=== PATIENT | male | born 1975 | race Caucasian/White ===

== ENCOUNTER 2016-09-25 21:00 | Emergency (ER) | payer OTHER ==
[~2016-09-25 21:00] MED LIST: ALBU0.63 NEB; AMOX500C PO; FLUT1DIS3 IH; FLUT9.9S NS; PROAIR HFA8.5 GM IH
[2016-09-25 21:30] VITALS: BP 128/81
[2016-09-25] MEDS ORDERED: IPRATRPIUM/ALBUTEROL 0.5/2.5MG 3 ML NEBU. NEB ONE (22:15)
[2016-09-25] MEDS ORDERED: BENZ200C39 PO (22:58)
[2016-09-25] MEDS ORDERED: PRED20TA PO (22:58)
[2016-09-25] MEDS ORDERED: AMOX500T PO (22:58)
--- NOTE | 2016-09-25 22:58 | PHYS DOC ---
Past Medical History Past Medical History: Asthma Past Surgical History: Other Additional Past Surgical Histo: nose, right ear Additional Information: Nonsmoker Alcohol Use: None Drug Use: None Adult General Chief Complaint Chief Complaint: Congestion HPI HPI Patient is a 41 year old male with history of asthma who presents with productive cough and left ear pain for 4 days. He reports shortness of breath and nasal congestion as well. He denies fever, sore throat, vomiting, or diarrhea. He wears a hearing aid in the left ear. He states that there has been mild drainage from the ear, enough to make the hearing aid slightly damp. He takes Advair, pro-air, albuterol nebulizer, allergy medication, and Flonase at home. He has received a flu shot this season. He denies any known sick contacts. His PCP is Dr. Starkey. Review of Systems Review of Systems Constitutional: Denies fever or chills. [] Eyes: Denies change in visual acuity, redness, or eye pain. [] HENT: Denies sore throat. Reports left ear pain and drainage and nasal congestion. Respiratory: Reports productive cough and shortness of breath. Cardiovascular: Denies chest pain, palpitations or edema. [] GI: Denies abdominal pain, nausea, vomiting, bloody stools or diarrhea. [] : Denies dysuria, hematuria or urinary frequency. [] Musculoskeletal: Denies back pain or joint pain. [] Integument: Denies rash or skin lesions. [] Neurologic: Denies headache, focal weakness or sensory changes. [] Endocrine: Denies polyuria or polydipsia. [] Psych: Denies anxiety or depression. [] All systems reviewed and negative unless otherwise stated in the HPI. Current Medications Current Medications Current Medications Medications (Trade) Dose Ordered Sig/Beverley Start Time Stop Time Status Last Admin Dose Admin Albuterol/ Ipratropium (Duoneb) 3 ml 1X ONCE 09/25/16 22:15 09/25/16 22:16 DC 09/25/16 22:30 3 ML Allergies Allergies Allergies Coded Allergies Type Severity Reaction Last Updated Verified No Known Drug Allergies 08/15/15 No Physical Exam Physical Exam Constitutional: Well developed, well nourished, no acute distress, non-toxic appearance. [] HENT: Normocephalic, atraumatic, bilateral external ears normal, oropharynx moist, no oral exudates, nose normal. Right TM without erythema or bulging. Left TM is erythematous and perforated with mild purulent drainage in the ear canal without edema. There is no posterior pharyngeal erythema or tonsillar edema. Bilateral nasal turbinates are swollen and erythematous with purulent drainage. Eyes: PERRLA, EOMI, conjunctiva normal, no discharge. [] Neck: Normal range of motion, no tenderness, supple, no stridor. [] Cardiovascular: Heart rate regular rhythm, no murmur [] Lungs & Thorax: There are diffuse expiratory wheezes with mild inspiratory wheezes in the lung bases bilaterally. No respiratory distress. Skin: Warm, dry, no erythema, no rash. [] Neurologic: Alert and oriented X 3, normal motor function, normal sensory function, no focal deficits noted. [] Psychologic: Affect normal, judgement normal, mood normal. [] Current Patient Data Vital Signs Vital Signs Date Time Temp Pulse Resp B/P Pulse Ox O2 Delivery O2 Flow Rate FiO2 09/25/16 22:29 94 Room Air 09/25/16 21:30 97.5 92 22 97.5 EKG EKG [] Radiology/Procedures Radiology/Procedures PA and lateral chest x-ray reviewed and interpreted by myself with Dr. Benavides. There are no focal infiltrates or acute cardiopulmonary process. Course & Med Decision Making Course & Med Decision Making Pertinent Labs and Imaging studies reviewed. (See chart for details) The patient received a DuoNeb treatment in the emergency department. He reports improved breathing. He has mild scattered inspiratory wheezes diffusely. Dragon Disclaimer Dragon Disclaimer This electronic medical record was generated, in whole or in part, using a voice recognition dictation system. Departure Departure Impression: Primary Impression: Otitis media Additional Impression: Bronchitis Disposition: 01 HOME, SELF-CARE Condition: IMPROVED Referrals: HEMALATHA STARKEY MD (PCP) Patient Instructions: Acute Bronchitis, [id number], Otitis Media, Adult, Easy -to-Read Additional Instructions: Your chest x-ray does not show any pneumonia. The left ear has an infection that has caused the eardrum to rupture. Please complete all the prescribed antibiotics and steroids, even if you are feeling better. Please continue to use your home medications as directed. Return to the emergency department if you have any new or concerning symptoms. Scripts Amoxicillin 500 Mg Tablet2 Tab PO TID 10 Days Prov:MAX DAY 09/25/16 Benzonatate 200 Mg Capsule1 Cap PO TID #30 CAP Prov:MAX DAY 09/25/16 Prednisone 20 Mg Aewikr11 Mg PO DAILY 5 Days Prov:MAX DAY 09/25/16 Problem Qualifiers Primary Impression: Otitis media Otitis media type: suppurative Laterality: left Chronicity: acute Recurrence: not specified as recurrent Spontaneous tympanic membrane rupture: with spontaneous rupture Qualified Code: H66.012 - Acute suppurative otitis media with spontaneous rupture of ear drum, left ear MAX DAY Sep 25, 2016 22:58
--- NOTE | 2016-09-26 07:37 | RAD ---
Indication cough. PA and lateral views of the chest were obtained and are compared to an examination 04/03/2016. The heart and pulmonary vessels appear within normal limits. A focal infiltrate is not seen. Significant pleural fluid is not present and there is no pneumothorax. IMPRESSION: No acute or focal process seen in the chest
== END 2016-09-25 23:05 | disposition home or self-care (01) ==
LOC: ER 21:00
DX: J40 Bronchitis, not specified as acute or chronic (principal); H66.012 Acute suppurative otitis media with spontaneous rupture of ear drum, left ear; J45.909 Unspecified asthma, uncomplicated
CPT/HCPCS: 71020; 94250; 94640; 99284; J7620

== ENCOUNTER 2017-01-03 18:12 | Emergency (ER) | payer MEDICARE, OTHER ==
[~2017-01-03 18:12] MED LIST changes: +AMOX500T PO; +BENZ200C47 PO; +PRED20TA PO
[2017-01-03 18:34] VITALS: BP 142/75
[2017-01-03] MEDS ORDERED: OFLO5DRO7 EACH EAR (19:07)
--- NOTE | 2017-01-03 19:08 | PHYS DOC ---
Past Medical History Past Medical History: Asthma Past Surgical History: Other Additional Past Surgical Histo: nose, right ear Alcohol Use: None Drug Use: None Adult General Chief Complaint Chief Complaint: EARACHE/EAR PAIN HPI HPI Patient is a 41 year old male with history of asthma WIYOT on the left currently using hearing aids on the left who presents today with left ear pain and drainage that began today. Patient denies any fever coughing or congestion. Patient denies any worsening on his hearing condition. Patient denies swimming. Review of Systems Review of Systems Constitutional: Denies fever or chills [] Eyes: Denies change in visual acuity, redness, or eye pain [] HENT: left ear pain and drainage Respiratory: Denies cough or shortness of breath [] Cardiovascular: No additional information not addressed in HPI [] Musculoskeletal: Denies back pain or joint pain [] Neurologic: Denies headache, focal weakness or sensory changes [] Endocrine: Denies polyuria or polydipsia [] Allergies Allergies Allergies Coded Allergies Type Severity Reaction Last Updated Verified phenobarbital Allergy Severe SOB 01/03/17 Yes Physical Exam Physical Exam Constitutional: Well developed, well nourished, no acute distress, non-toxic appearance. [] HENT: Normocephalic, atraumatic, bilateral external ears normal, oropharynx moist, no oral exudates, nose normal. [] Left ear canal is narrowed. There is mild amount of yellow debris in the left ear canal. Tragus is very painful on exam. Eyes: PERRLA, EOMI, conjunctiva normal, no discharge. [] Cardiovascular:Heart rate regular rhythm, no murmur [] Lungs & Thorax: Bilateral breath sounds clear to auscultation [] Skin: Warm, dry, no erythema, no rash. [] Back: No tenderness, no CVA tenderness. [] Extremities: No tenderness, no cyanosis, no clubbing, ROM intact, no edema. [] Neurologic: Alert and oriented X 3, normal motor function, normal sensory function, no focal deficits noted. [] Psychologic: Affect normal, judgement normal, mood normal. [] Current Patient Data Vital Signs Vital Signs Date Time Temp Pulse Resp B/P (MAP) Pulse Ox O2 Delivery O2 Flow Rate FiO2 01/03/17 18:34 97.6 63 20 100 Room Air 97.6 EKG EKG [] Radiology/Procedures Radiology/Procedures [] Course & Med Decision Making Course & Med Decision Making Pertinent Labs and Imaging studies reviewed. (See chart for details) Patient has left otitis externa. Discharged with oflaxacin, follow-up with PCP in 1-2 weeks. Dragon Disclaimer Dragon Disclaimer This electronic medical record was generated, in whole or in part, using a voice recognition dictation system. Departure Departure Impression: Primary Impression: Left otitis externa Disposition: HOME, SELF-CARE Condition: STABLE Referrals: HEMALATHA BATISTA MD (PCP) Follow-up with your doctor in 1-2 weeks. Patient Instructions: Otitis Externa, [id number] Additional Instructions: You were seen for left ear infection. Use the eardrops as prescribed. Follow-up with your doctor in 1-2 weeks. Scripts Ofloxacin (OFLOXACIN) 5 Ml Drops 5 DROP EACH EAR BID, #10 ML Prov: DEMETRIA BAILEY [employer] 01/03/17 Problem Qualifiers Primary Impression: Left otitis externa Otitis externa type: other infective Chronicity: acute Qualified Codes: H60.392 - Other infective otitis externa, left ear [employer]A BAI[employer] Jan 03, 2017 19:07
== END 2017-01-03 19:16 | disposition home or self-care (01) ==
LOC: ER 18:12
DX: H60.392 Other infective otitis externa, left ear (principal); J45.909 Unspecified asthma, uncomplicated; Z88.8 Allergy status to other drugs, medicaments and biological substances
CPT/HCPCS: 99283

== ENCOUNTER 2018-09-11 20:02 | Emergency (ER) | payer MEDICARE, OTHER ==
[~2018-09-11] VITALS: Ht 175.3 cm; Wt 79.4 kg
[~2018-09-11 20:02] MED LIST changes: +ALBU2.5V8 IH; +OFLO5DRO7 EACH EAR; -PROAIR HFA8.5 GM IH
[2018-09-11 20:36] VITALS: BP 157/82
[2018-09-11] MEDS ORDERED: OFLO5DRO7 LEFT EAR (21:20)
--- NOTE | 2018-09-11 21:20 | PHYS DOC ---
Past Medical History Past Medical History: Asthma (RYLEE ANTONY APRN) Past Surgical History: Other Additional Past Surgical Histo: nose, right ear (RYLEE ANTONY APRN) Alcohol Use: None Drug Use: None (RYLEE ANTONY APRN) Adult General Chief Complaint Chief Complaint: EARACHE/EAR PAIN HPI HPI Patient is a 42 year old male who was diagnosed with an ear infection by his PCP 4 days ago, he was unable to get the antibiotic that was prescribed until yesterday. Pt states he has taken 3 doses of the medication and his symptoms have not improved and his left ear has started draining fluid. Pt rates his pain a 6/10 on the pain scale, there are no alleviating or exacerbating factors. (RYLEE ANTONY APRN) Review of Systems Review of Systems Constitutional: Denies fever or chills [] Eyes: Denies redness, or eye pain [] HENT: Denies nasal congestion or sore throat ; see HPI[] Respiratory: Denies cough or shortness of breath [] Cardiovascular: No additional information not addressed in HPI [] GI: Denies abdominal pain, nausea, vomiting, or diarrhea [] Integument: Denies rash or skin lesions [] Neurologic: Denies headache (RYLEE ANTONY APRN) Allergies Allergies Allergies Coded Allergies Type Severity Reaction Last Updated Verified phenobarbital Allergy Severe SOB 01/03/17 Yes (BENITO HURT MD) Physical Exam Physical Exam Constitutional: Well developed, well nourished, no acute distress, non-toxic appearance. [] HENT: Normocephalic, atraumatic, bilateral external ears normal, bilateral TMs infected- right TM effusion with moderate pus fluid, left TM unable to visualize perforation large amount of purulent drainage, posterior pharynx normal, oropharynx moist, no oral exudates, nose normal. [] Eyes: conjunctiva normal, no discharge. [] Neck: Normal range of motion, no stridor. [] Cardiovascular:Heart rate regular rhythm, no murmur [] Lungs & Thorax: Bilateral breath sounds clear to auscultation [] Skin: Warm, dry, no erythema, no rash. [] Neurologic: Alert and oriented X 3, no focal deficits noted. [] Psychologic: Affect normal, judgement normal, mood normal. [] (RYLEE ANTONY APRN) Current Patient Data Vital Signs Vital Signs Date Time Temp Pulse Resp B/P (MAP) Pulse Ox O2 Delivery O2 Flow Rate FiO2 09/11/18 20:36 97.7 87 16 157/82 (107) 96 Room Air 97.7 (BENITO HURT MD) EKG EKG [] (RYLEE ANTONY APRN) Radiology/Procedures Radiology/Procedures [] (RYLEE ANTONY APRN) Course & Med Decision Making Course & Med Decision Making Pertinent Labs and Imaging studies reviewed. (See chart for details) [] (RYLEE ANTONY APRN) Course & Med Decision Making Staff Physician Addendum: I was working in the ER during the course of this patient's visit. I was available for consultation as needed, but I was not directly involved in the care of this patient. (BENITO HURT MD) Dragon Disclaimer Dragon Disclaimer This electronic medical record was generated, in whole or in part, using a voice recognition dictation system. (RYLEE ANTONY APRN) Departure Departure Impression: Primary Impression: Acute suppurative otitis media of left ear with spontaneous rupture of tympanic membrane Additional Impression: Acute suppurative otitis media of right ear without spontaneous rupture of tympanic membrane Disposition: 01 HOME, SELF-CARE Condition: STABLE Referrals: HEMALATHA BATISTA MD (PCP) Patient Instructions: Otitis Media, Adult Additional Instructions: Fill the prescription and take as directed in addition to the antibiotic prescribed by your primary care doctor. Tylenol or ibuprofen as needed for pain. Follow up with your primary care doctor next week for re-examination, return to the ER if symptoms worsen. Scripts Ofloxacin (OFLOXACIN) 5 Ml Drops 5 DROP LEFT EAR BID for 5 Days, #10 ML 0 Refills Prov: RYLEE ANTONY APRN 09/11/18 Problem Qualifiers Primary Impression: Acute suppurative otitis media of left ear with spontaneous rupture of tympanic membrane Recurrence: recurrent Qualified Codes: H66.015 - Acute suppurative otitis media with spontaneous rupture of ear drum, recurrent, left ear Additional Impression: Acute suppurative otitis media of right ear without spontaneous rupture of tympanic membrane Recurrence: recurrent Qualified Codes: H66.004 - Acute suppurative otitis media without spontaneous rupture of ear drum, recurrent, right ear RYLEE ANTONY APRN Sep 11, 2018 21:20 BENITO HURT MD Sep 17, 2018 06:22
== END 2018-09-11 21:31 | disposition home or self-care (01) ==
LOC: ER 20:02
DX: H66.004 Acute suppurative otitis media without spontaneous rupture of ear drum, recurrent, right ear (principal); H66.015 Acute suppurative otitis media with spontaneous rupture of ear drum, recurrent, left ear; J45.909 Unspecified asthma, uncomplicated; Z88.8 Allergy status to other drugs, medicaments and biological substances
CPT/HCPCS: 99283

== ENCOUNTER 2018-10-03 23:32 | Emergency (ER) | payer MEDICARE, OTHER ==
[~2018-10-03] VITALS: Ht 172.7 cm; Wt 82.1 kg
[~2018-10-03 23:32] MED LIST changes: +OFLO5DRO7 LEFT EAR
[2018-10-03 23:42] VITALS: BP 163/81
--- NOTE | 2018-10-03 23:57 | PHYS DOC ---
Past Medical History Past Medical History: Asthma, Hypertension, Seizure Past Surgical History: Other Additional Past Surgical Histo: nose, right ear Alcohol Use: None Drug Use: None Adult General Chief Complaint Chief Complaint: EARACHE/EAR PAIN HPI HPI Patient is a 43 year old male presented to the ER today for evaluation of fluid coming out of his right ear. Patient has exudative otitis media on right ear. Patient is currently on augmentin and ciprodex. He has been put cipro solution in his right ear. He also has been wearing hearing aid on his right are. Today, his mom noted the drainage coming out of right ear with yellow color tinged with blood. So she asked him to come here for evaluation. Review of Systems Review of Systems Constitutional: Denies fever or chills [] Eyes: Denies change in visual acuity, redness, or eye pain [] HENT: Denies nasal congestion or sore throat [] Respiratory: Denies cough or shortness of breath [] Cardiovascular: No additional information not addressed in HPI [] GI: Denies abdominal pain, nausea, vomiting, bloody stools or diarrhea [] : Denies dysuria or hematuria [] Musculoskeletal: Denies back pain or joint pain [] Integument: Denies rash or skin lesions [] Neurologic: Denies headache, focal weakness or sensory changes [] Endocrine: Denies polyuria or polydipsia [] All other systems were reviewed and found to be within normal limits, except as documented in this note. Allergies Allergies Allergies Coded Allergies Type Severity Reaction Last Updated Verified phenobarbital Allergy Severe SOB 01/03/17 Yes Physical Exam Physical Exam Constitutional: Well developed, well nourished, no acute distress, non-toxic appearance. [] HENT: Normocephalic, atraumatic, clear fluid in right external ear canal consistent with the same concentration of CIPRO SOLUTION THAT HE HAS BEEN PUTTING IN HIS RIGHT EAR. NO BLEEDING. Eyes: PERRLA, EOMI, conjunctiva normal, no discharge. [] Neck: Normal range of motion, no tenderness, supple, no stridor. [] Cardiovascular:Heart rate regular rhythm, no murmur [] Lungs & Thorax: Bilateral breath sounds clear to auscultation [] Neurologic: Alert and oriented X 3, normal motor function, normal sensory function, no focal deficits noted. [] Psychologic: Affect normal, judgement normal, mood normal. [] Current Patient Data Vital Signs Vital Signs Date Time Temp Pulse Resp B/P (MAP) Pulse Ox O2 Delivery O2 Flow Rate FiO2 10/03/18 23:42 98.4 108 20 163/81 (108) 99 Room Air 98.4 EKG EKG [] Radiology/Procedures Radiology/Procedures [] Course & Med Decision Making Course & Med Decision Making Pertinent Labs and Imaging studies reviewed. (See chart for details) [] Dragon Disclaimer Dragon Disclaimer This electronic medical record was generated, in whole or in part, using a voice recognition dictation system. Departure Departure Impression: Primary Impression: Acute suppurative otitis media of right ear without spontaneous rupture of tympanic membrane Disposition: HOME, SELF-CARE Condition: STABLE Referrals: HEMALATHA BATISTA MD (PCP) YOU WILL NEED TO FOLLOW UP WITH ENT doctor next week for reevaluation. Patient Instructions: Otitis Media with Effusion Additional Instructions: Please continue your current antibiotic. Follow up with ENT doctor next week for reevaluation. ISIDRO STOVER DO Oct 03, 2018 23:57
== END 2018-10-04 00:04 | disposition home or self-care (01) ==
LOC: ER 23:32
DX: H66.001 Acute suppurative otitis media without spontaneous rupture of ear drum, right ear (principal); I10 Essential (primary) hypertension; J45.909 Unspecified asthma, uncomplicated; Z88.8 Allergy status to other drugs, medicaments and biological substances
CPT/HCPCS: 99281

== ENCOUNTER 2020-06-28 03:49 | Emergency (ER) | payer OTHER, MEDICAID ==
[~2020-06-28] VITALS: Ht 175.3 cm; Wt 79.5 kg
[2020-06-28 04:00] VITALS: BP 139/74
--- NOTE | 2020-06-28 04:29 | PHYS DOC ---
Past Medical History Past Medical History: Asthma, Hypertension, Seizure Past Surgical History: Other Additional Past Surgical Histo: nose polyp removal, right eardrum surg Smoking Status: Never Smoker Alcohol Use: None Drug Use: None General Adult EDM: Chief Complaint: EARACHE/EAR PAIN HPI: HPI: 44-year-old male past medical history significant for hypertension, asthma, cognitive delay and seizure disorder, presents the ED with complaints of left ear pain that started yesterday and is now resolved but is complaining of some green drainage from the left ear. Reports he has a hearing aid in his left ear. History of bilateral ear tubes and nasal polyps. Patient lives with his father who is currently a PUI in emergency department. Accepts offer for Covid testing. Review of Systems: Review of Systems: Constitutional: Denies fever or chills, or lack of taste or smell Eyes: Denies change in visual acuity. [] HENT: Denies nasal congestion or sore throat. [] Respiratory: Denies cough or shortness of breath. [] Cardiovascular: Denies chest pain or edema. [] GI: Denies abdominal pain, nausea, vomiting, bloody stools or diarrhea. [] : Denies dysuria or hematuria Musculoskeletal: Denies back pain or joint pain. [] Integument: Denies rash or crepitus Neurologic: Denies headache, focal weakness or sensory changes. [] Endocrine: Denies polyuria or polydipsia. [] Lymphatic: Denies swollen glands. [] Psychiatric: Denies depression or anxiety. [] Heart Score: Risk Factors: Risk Factors: DM, Current or recent (<one month) smoker, HTN, HLP, family history of CAD, obesity. Risk Scores: Score 0 - 3: 2.5% MACE over next 6 weeks - Discharge Home Score 4 - 6: 20.3% MACE over next 6 weeks - Admit for Clinical Observation Score 7 - 10: 72.7% MACE over next 6 weeks - Early Invasive Strategies Allergies: Allergies: Allergies Coded Allergies Type Severity Reaction Last Updated Verified phenobarbital Allergy Severe SOB 01/03/17 Yes Physical Exam: PE: Constitutional: Well developed, well nourished, no acute distress, non-toxic appearance, afebrile HENT: Normocephalic, atraumatic, right ear normal TM and external canal, left ear with no mastoid tenderness or obliteration of auricular crease, yellow otorrhea and external otitis canal with no TM erythema or effusion, helix and external canal with no erythema, poor dentition Eyes: EOMI, conjunctiva normal, no discharge. Neck: Normal range of motion, supple, no nuchal rigidity Cardiovascular: S1/2 present, regular rhythm Lungs & Thorax: Speaking in full sentences, bilateral equal chest rise, no tachypnea or increased work of breathing Abdomen: soft, no tenderness, Skin: Warm, dry, no erythema, no rash. [] Back: No tenderness, no CVA tenderness. [] Extremities: No tenderness, no cyanosis, no edema Neurologic: Alert and oriented X 3, normal motor function, normal sensory function, no focal deficits noted. [] Psychologic: Affect normal, judgement normal, mood normal, smiling/happy-makes jokes Current Patient Data: Vital Signs: Vital Signs Date Time Temp Pulse Resp B/P (MAP) Pulse Ox O2 Delivery O2 Flow Rate FiO2 06/28/20 04:00 97.7 74 20 139/74 (95) 96 Room Air 97.7 EKG: EKG: [] Radiology/Procedures: Radiology/Procedures: [] Course & Med Decision Making: Course & Med Decision Making Pertinent Labs and Imaging studies reviewed. (See chart for details) Concern for left otalgia that has since resolved with otorrhea, no obvious erythema of the helix, external canal or tympanic membrane. We will treat with antibiotics and reevaluation in 2 to 3 days by primary care physician or ENT. Covid test pending per patient's request and exposure to his father whom he lives with. Will discharge home with strict ED return precautions were given for fever, worsening ear pain, neck stiffness, or headache. Encouraged urgent outpatient follow-up with PMD and ENT. Life-threatening processes were considered but are low suspicion at this time, given history, physical exam and ED workup. Pt was educated on all prescription medications and adverse effects. All patient's questions were answered and pt was stable at time of discharge. Life/limb-threatening differential includes but is not limited to, auricular hematoma or perichondritis, malignant otitis externa, otitis externa or media, otomycosis, bullous myringitis, mastoiditis, hearing loss or vestibular disorder, tympanic membrane rupture, herpes zoster oticus, contact dermatitis, cholesteatoma, meningitis, brain abscess or venous/cavernous/cerebral sinus thrombosis. I spoken with the patient and her caregivers. I explained the patient's condition, diagnoses and treatment plan based on the information available to me at this time. I have answered the patient and her caregiver's questions and addressed any concerns. The patient and her caregivers have a good understanding of patient's diagnosis, condition and treatment plan as can be ex pected at this point. Vital signs have been stable. Patient's condition is stable and appropriate for discharge from the emergency department. Patient will pursue further outpatient evaluation with primary care physician or other designated or consulting physician as outlined in the discharge instructions. The patient and/or caregivers are agreeable to this plan of care and follow-up instructions have been explained in detail. The patient and/or caregivers have received these instructions in written form and have expressed an understanding of the discharge instructions. The patient and/or caregivers are aware that any significant change of condition or worsening of symptoms should prompt immediate return to this or the closest emergency department or call to [facility]. Donna Disclaimer: Donna Disclaimer: This electronic medical record was generated, in whole or in part, using a voice recognition dictation system. Departure Departure Impression: Primary Impression: Otorrhea of left ear Additional Impression: Otalgia of left ear Disposition: 01 DC HOME SELF CARE/HOMELESS Condition: STABLE Referrals: HEMALATHA BATISTA MD (PCP) within 7 days Patient Instructions: Otitis Media, Adult Additional Instructions: FOLLOW UP WITH ENT: Otolaryngology Address: [address] [place] [address], [address] [place] [address] [employer] [facility] Address: [address] [place] [id number] EMERGENCY DEPARTMENT GENERAL DISCHARGE INSTRUCTIONS Thank you for coming to [facility] Emergency Department (ED) today and trusting us with you care. We trust that you had a positive experience in our Emergency Department. If you wish to speak to the department management, you may call the Director at [phone]. YOUR FOLLOW UP INSTRUCTIONS ARE FOLLOWS: 1. Do you have a private Doctor? If you do not have a private doctor, please ask for a resource list of physicians or clinics that may be able to assist you with follow up care. 2. The Emergency Physicain has interpreted your x-rays. The X-Ray specialist will also review them. If there is a change in the findings, you will be notified in 48 hours when at all possible. 3. A lab test or culture has been done, your results will be reviewed and you will be notified if you need a change in treatment. ADDITIONAL INSTRUCTIONS AND INFORMATION: 1. Your care today has been supervised by a physician who is specially trained in emergency care. Many problems require more than one evaluation for a complete diagnosis and treatment. We recommend that you schedule your follow up appointment as recommended to ensure complete treatment of you illness or injury. If you are unable to obtain follow up care and continue to have a problem, or if your condition worsens, we recommend that you return to the ED. 2. We are not able to safely determine your condition over the phone nor are we able to give sound medical advice over the phone. For these safety reasons, if you call for medical advice we will ask you to come to the ED for further evaluation. 3. If you have any questions regarding these discharge instructions please call the ED at [phone]. SAFETY INFORMATION: In the interest of safety, wellness, and injury prevention; we encourage you to wear your sealbelt, if you smoke; quite smoking, and we encourage family to use a protective helmet for bicycling and other sporting events that present an increased risk for head injury. IF YOUR SYMPTOMS WORSEN OR NEW SYMPTOMS DEVELOP, OR YOU HAVE CONCERNS ABOUT YOUR CONDITION; OR IF YOUR CONDITION WORSENS WHILE YOU ARE WAITING FOR YOUR FOLLOW UP APPOINTM ENT; EITHER CONTACT YOUR PRIMARY CARE DOCTOR, THE PHYSICIAN WHOSE NAME AND NUMBER YOU WERE GIVEN, OR RETURN TO THE ED IMMEDIATELY. Scripts Amoxicillin/Potassium Clav (AUGMENTIN 875-125 TABLET) 1 Each Tablet 1 TAB PO Q12HR for 10 Days, #20 TAB Prov: STONE LEHMAN DO 06/28/20 STONE LEHMAN DO Jun 28, 2020 04:29
[2020-06-28] MEDS ORDERED: AMOX1TAB61 PO (05:24)
== END 2020-06-28 05:32 | disposition home or self-care (01) ==
LOC: ER 03:49
DX: U07.1 COVID-19 (principal); R50.9 Fever, unspecified; H92.02 Otalgia, left ear; J45.909 Unspecified asthma, uncomplicated; I10 Essential (primary) hypertension; G40.909 Epilepsy, unspecified, not intractable, without status epilepticus; Z98.890 Other specified postprocedural states; Z88.8 Allergy status to other drugs, medicaments and biological substances
CPT/HCPCS: 99283; C9803; U0003